=== PATIENT | female | born 1930 | race Caucasian/White ===

== ENCOUNTER 2016-12-02 11:00 | Observation (INO) | payer MEDICARE ==
[~2016-12-02] VITALS: Ht 165.1 cm; Wt 49.4 kg
[~2016-12-02 11:00] MED LIST: AZOPT10 ML OP; CELEBREX200 MG PO; DIOVAN80 MG PO; NEXIUM40 MG PO; SYNTHROID112 MCG PO
[2016-12-02 11:32] VITALS: BP 170/50
--- NOTE | 2016-12-02 12:39 | Diagnostic Imaging Report ---
Indications: Cephalgia since closed head trauma 10 days ago Technique: Continuous helical CT imaging of the brain was performed with automatic exposure control on a Siemens sensation [address] scanner. Axial and coronal images were reconstructed at 5 mm slice thickness and interval. 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 No evidence of mass or hemorrhage, other attenuation abnormality, mass effect, midline shift, hydrocephalus or increased intracranial pressure. Bone window images are unremarkable. Left mastoid air cells currently partially opacified. Visualized paranasal sinuses and right mastoid air cells are clear. Prominent central arterial mural calcification again noted. IMPRESSION: Interval development of partial opacification left mastoid air cells, nonspecific, may be inflammatory or traumatic. No additional evidence of acute injury. Correlate clinically. No other evidence of acute intracranial pathology, unchanged. Stable chronic changes as described The CT scanner at [facility] is accredited by the [employer] and the scans are performed using protocols designed to limit radiation exposure to as low as reasonably achievable to attain images of sufficient resolution adequate for diagnostic evaluation.
--- NOTE | 2016-12-02 13:22 | Emergency Room Report ---
History of Present Illness General Chief Complaint: Head Injury Source: Patient, Family Member Present Illness HPI [id number] presents with family member for double and blurry vision left eye for 4 days since patient rolled onto top of her head while exercising. Has felt associated increased pressure since. Denies neck pain, headache, fever/chills. 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 Per Dr Bob, PMD, patient on hospice for dementia. Allergies: Coded Allergies: No Known Allergies (Unverified , 06/21/12) Patient History Past Medical History: dementia Past Surgical History: none Pertinent Family History: none Social History: Denies: alcohol use, drug use, smoking Now: No Immunizations: UTD Reviewed Nursing Documentation: PMH: Agreed, PSxH: Agreed Nursing Documentation-PMH Past Medical History: No History, Except For Hx Hypertension: Yes Hx Gastrointestinal Problems: Yes - gerd Hx Neurological Problems: Yes - dementia Review of Systems All Other Systems: negative except mentioned in HPI Physical Exam Vital Signs Date Time Temp Pulse Resp B/P Pulse Ox O2 Delivery O2 Flow Rate FiO2 12/02/16 11:14 48 16 136/75 96 Room Air Sp02 EP Interpretation: reviewed, normal General Appearance: normal inspection, well appearing, no apparent distress, alert, GCS 15, non-toxic, other - Well appearing elderly lady sitting uprihgt in stretcher Head: normocephalic, atraumatic Eyes: bilateral eye other - Right eye glaucoma, no vision. Left eye: able to distinguish number of digits at 10 feet. ENT: normal ENT inspection, hearing grossly normal, normal voice Neck: normal inspection, full range of motion, supple, no bony tend Respiratory: normal inspection, lungs clear, normal breath sounds, no respiratory distress, no retraction, no wheezing Cardiovascular #1: regular rate, rhythm, no edema Gastrointestinal: normal inspection, normal bowel sounds, non tender, soft, no guarding, no hernia Genitourinary: no CVA tenderness Musculoskeletal: normal inspection, back normal, normal range of motion, Isabel' s Sign negative Neurologic: normal inspection, alert, oriented x3, responsive, assignment officer III-XII nml as tested, speech normal Psychiatric: normal inspection, judgement/insight normal, mood/affect normal Skin: normal inspection, normal color, no rash Lymphatic: normal inspection Medical Decision Making Medicare Attestation I Vicky Casas MD hereby attest that the medical record entry for date of service, 07/05/16 accurately reflects signatures/notations that I made in my capacity as MD when I treated/diagnosed the above listed Medicare beneficiary. I attest that this information is true, accurate and complete to the best of my knowledge. I understand that any falsification, omission, or concealment of material fact may subject me to administrative, civil, or criminal liability. This patient warrants hospital admission for extreme of age and has a condition that cannot be treated as outpatient. Diagnostic Impression: Primary Impression: Head contusion Qualified Codes: S00.93XA - Contusion of unspecified part of head, initial encounter Additional Impressions: Blurry vision, left eye RICK (acute kidney injury) ER Course Labs: No leuks. H&H stable. Mild RICK. 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 Endorsed to Dr Bob at 121pm for med/surg admission. Last Vital Signs Date Time Temp Pulse Resp B/P Pulse Ox O2 Delivery O2 Flow Rate FiO2 12/02/16 11:32 42 15 170/50 100 Room Air Status: improved Disposition: ADMITTED INPATIENT Condition: Serious Referrals: VICKY BOB (PCP) VICKY CASAS M.D. December 02, 2016 13:22
[2016-12-02 14:18] LABS: BASOPHILS % (AUTO) 1.2 % (0.0-2.0); EOSINOPHILS % (AUTO) 1.8 % (0.0-3.0); LYMPHOCYTES % (AUTO) 30.7 % (20.0-45.0); MEAN CORPUSCULAR HEMOGLOBIN 31.9 PG (27.0-31.0); MEAN CORPUSCULAR HGB CONC 32.2 G/DL (32.0-36.0); MEAN CORPUSCULAR VOLUME 99 FL (80-99); MONOCYTES % (AUTO) 6.9 % (1.0-10.0); NEUTROPHILS % (AUTO) 59.4 % (45.0-75.0); PLATELET COUNT 265 K/UL (150-450); RED CELL DISTRIBUTION WIDTH 13.5 % (11.6-14.8)
--- NOTE | 2016-12-02 14:20 | Diagnostic Imaging Report ---
Indications: Chest pain Technique: Portable AP chest Findings: Comparison: None Lungs normally, symmetrically inflated and clear. No pleural abnormality. Heart size, pulmonary vasculature within normal limits. No abnormal mediastinal widening. Aortic arch calcified. S-shaped scoliosis, multilevel disc space narrowing with marginal osteophyte formation lower thoracic, lumbar spine. Surgical clips and abdominal right upper quadrant. IMPRESSION: No evidence of acute cardiopulmonary disease Degenerative spondylosis, scoliosis Arteriosclerosis Previous cholecystectomy
[2016-12-02 14:21] LABS: ALANINE AMINOTRANSFERASE 35 U/L (3-33); ALBUMIN/GLOBULIN RATIO 1.6 (1.0-2.7); ANION GAP 14 (5-15); ASPARTATE AMINO TRANSFERASE 26 U/L (5-40); CARBON DIOXIDE 21 mEQ/L (20-30); CHLORIDE 104 mEQ/L (98-107); HEMOLYSIS 7; POTASSIUM 3.9 mEQ/L (3.4-4.9); SODIUM 139 mEQ/L (135-145); TOTAL PROTEIN 6.1 g/dL (6.6-8.7); TROPONIN I < 0.30 ng/mL (<=0.30)
[2016-12-02] MEDS ORDERED: KLONOPIN0.5 MG ORAL (14:25)
[2016-12-02] MEDS ORDERED: TRUSOPT10 ML BOTH EYES (14:25)
[2016-12-02] MEDS ORDERED: AMLODIPINE BESYL5 MG ORAL (14:25)
[2016-12-02] MEDS ORDERED: AMIODARONE HCL400 M1 ORAL (14:25)
[2016-12-02] MEDS ORDERED: LUMIGAN2.5 ML BOTH EYES (14:25)
[2016-12-02] MEDS ORDERED: LOSARTAN POTASS50 MG ORAL (14:25)
[2016-12-02] MEDS ORDERED: ACETAZOLAMIDE500 MG ORAL (14:25)
[2016-12-02] MEDS ORDERED: RESTASIS1 EACH BOTH EYES (14:25)
[2016-12-02 14:30] LABS: CKMB 2.6 ng/mL (< 3.8)
[2016-12-02 15:39] VITALS: BP 152/52
[2016-12-02 16:18] VITALS: BP 152/52
--- NOTE | 2016-12-02 16:48 | History & Physical ---
History and Physical History & Physicial fall, head trauma AZAR multi-infarct dementia admit to [facility] VICKY BOB December 02, 2016 16:48
--- NOTE | 2016-12-02 22:49 | History and Physical Report ---
DATE OF ADMISSION: 12/02/2016 CHIEF COMPLAINT: Headache. HISTORY OF PRESENT ILLNESS: The patient reports that about 10 days ago, she was doing some exercises on the floor and hit her head. She did not have loss of consciousness. She was on a carpeted floor. She had no change in her neurologic condition with underlying mild dementia. She noted headaches that began a day or two after that and persisted. She reports worsening of her vision, but is known to have severe glaucoma. She has no nausea or vomiting. No weakness or numbness. She has had no seizures. She came to the emergency department. CT scan showed vascular disease and old stroke, but no signs of acute injury. She declined discharge and wanted to be admitted waiting to see me to make recommendations. PAST MEDICAL HISTORY: She is on hospice for dementia. She has multi-infarct state with a lacunar infarct noted on CT scanning. There is no history of tobacco or alcohol use. She has hypothyroidism, glaucoma, arrhythmia and hypertension. ALLERGIES: None. REVIEW OF SYSTEMS: Otherwise unremarkable. PHYSICAL EXAMINATION: GENERAL: The patient is alert and responds appropriately. She has some loss of memory. The head is normocephalic, without signs of trauma. VITAL SIGNS: Normal, but the blood pressure is somewhat elevated and the heart rate is low at 42 to 50. SKIN: Warm and dry. She is chronically under nourished. NECK: Has no jugular venous distention. CHEST: Clear. CARDIAC: Rhythm is regular. ABDOMEN: Soft and nontender. Liver and spleen not enlarged. EXTREMITIES: No clubbing, cyanosis, or edema. IMAGING STUDIES: A CT scan of the brain was reviewed and shows left mastoid air cell opacification. No evidence of acute injury, chronic changes include old lacunar infarcts in the right caudate nucleus and bilateral basal ganglia, and extensive chronic microvascular ischemic changes throughout the white matter with diffuse atrophy. The chest x-ray shows no acute disease. There is scoliosis and arterial sclerosis. LABORATORY STUDIES: Show hemoglobin is normal. White count is normal. Platelets are normal. Chemistry is normal. Creatinine is 1.0. IMPRESSIONS: 1. Mild head trauma without signs of acute intracranial injury. 2. Multi-infarct dementia. 3. Hypertension. 4. Hypothyroidism. 5. Arrhythmia. 6. Glaucoma with visual loss. PLAN: The patient will be discharged home to continue on her home medications and add [place] for her headache. She will resume hospice care and we will make adjustments in her other medications as needed. Sarath Sommer M.D. DR: RONI JOB#: [id number] CC: Sarath Sommer M.D.; Fax#: [phone]
--- NOTE | 2016-12-03 12:30 | Discharge Summary ---
Discharge Summary Hospital Course Date of Admission December 02, 2016 at 13:28 Date of Discharge December 02, 2016 at 17:20 Admitting Diagnosis dizziness HPI Bharti Dia is a 86 year old female who was admitted on December 02, 2016 at 13: 28 for Dizziness Hospital Course [id number] Discharge Discharge Disposition Patient was discharged to Home (01) Discharge Diagnoses: Alma Delia Canseco NP December 03, 2016 12:30
--- NOTE | 2016-12-04 04:58 | Discharge Summary 2 SIG ---
DATE OF ADMISSION: 12/02/2016 DATE OF DISCHARGE: 12/02/2016 BRIEF HOSPITAL COURSE: The patient is an 86-year-old female, who reported about 10 days ago was doing exercises on the floor and hit her head. She did not lose any consciousness. There was no change in neurologic condition. She has underlying mild dementia. She noted headaches, that began after that incident. She reported worsening of vision, but was noted to have severe glaucoma. There were no seizures. She presented to ED, CAT scan of the head showed vascular disease and old stroke, but no signs of acute injury. She was then admitted under observation. The chest x-ray showed no acute disease. Laboratories showed normal hemoglobin, white count is normal. Platelet is normal. Chemistries normal. The patient was discharged home on her home medications and [place] was added p.r.n. for headaches. She will resume hospice care and will make arrangements in her other medications as needed. FINAL DIAGNOSES: 1. Mild head trauma without signs of acute intracranial injury. 2. Multiinfarct dementia. 3. Hypertension. 4. Hypothyroidism. 5. Arrhythmia. 6. Glucose with visual loss. I have been assigned to dictate discharge summary on this account and I was not involved in the patient's management. Sarath Sommer M.D. I have been assigned to dictate discharge summary on this account and I was not involved in the patient's management. Alma Delia Canseco N.P. DR: Seth JOB#: [id number] CC:
--- NOTE | 2016-12-04 17:39 | Cardiology Report ---
APPROVED REPORT EKG Measurement Heart [id number] Sinus bradycardia with 1st degree AV block Septal infarct, age undetermined Abnormal ECG
== END 2016-12-02 17:20 | disposition home or self-care (01) ==
LOC: EMR 12:16 → 4E 13:28 → INTOOBSV 13:28 → EDBEDREQ 14:21
DX: S00.93XA Contusion of unspecified part of head, initial encounter (principal); W18.30XA Fall on same level, unspecified, initial encounter; Y93.B9 Activity, other involving muscle strengthening exercises; Y92.89 Other specified places as the place of occurrence of the external cause; Y99.8 Other external cause status; R51 Headache; N17.9 Acute kidney failure, unspecified; F03.90 Unspecified dementia, unspecified severity, without behavioral disturbance, psychotic disturbance, mood disturbance, and anxiety; H40.9 Unspecified glaucoma; H54.7 Unspecified visual loss; I10 Essential (primary) hypertension; E03.9 Hypothyroidism, unspecified; I49.9 Cardiac arrhythmia, unspecified; M41.9 Scoliosis, unspecified; E46 Unspecified protein-calorie malnutrition; Z86.73 Personal history of transient ischemic attack (TIA), and cerebral infarction without residual deficits
CPT/HCPCS: 36415; 70450; 70553; 71010; 80053; 82550; 82553; 84484; 85025; 93005; A9585; G0378